=== PATIENT | male | born 1995 | race Caucasian/White ===

== ENCOUNTER 2021-01-22 13:36 | Outpatient (CLI) | payer OTHER, SELFPAY ==
--- NOTE | ~2021-01-22 | XR_ITS ---
XR_CERV2-3V_CR DATE: 01/22/2021 14:08 INDICATION: Left cervical radiculopathy TECHNIQUE: AP, open-mouth, lateral views COMPARISON: None FINDINGS: There is reversal of cervical curvature. There is dextroscoliosis of the cervical spine. C1 and C2 are normally aligned and the odontoid process is intact. No fracture or dislocation or lock ed facet. No prevertebral soft tissue swelling. Cervical interspaces are well preserved. IMPRESSION: Reversal of cervical curvature and dextroscoliosis Reviewed, dictated and finalized at Location [facility]. Reviewed, dictated and finalized at location A.
--- NOTE | ~2021-01-22 | XR_ITS ---
XR lumbar spine 2-3V DATE: 01/22/2021 14:09 INDICATION: Back pain TECHNIQUE: AP, lateral, coned lateral lumbosacral views COMPARISON: None FINDINGS: No fracture or bone destruction. The included lower thoracic and lumbar pedicles are intact . No spondylolisthesis. Lumbar and lumbosacral interspaces are well preserved. The sacroiliac joints appear normal. No spondylolisthesis. IMPRESSION: No significant abnormality Reviewed, dictated and finalized at location A. IMPRESSION: No significant abnormality
--- NOTE | ~2021-01-22 | XR_ITS ---
XR thoracic spine 3V DATE: 01/22/2021 14:08 INDICATION: Back pain TECHNIQUE: AP, lateral, swimmer views COMPARISON: None FINDINGS: No fracture or dislocation or bone destruction. The thoracic pedicles are intact. There is minimal thoracic scoliosis. No paraspinal soft tissue thickening. IMPRESSION: Minimal scoliosis Reviewed, dictated and finalized at location A. IMPRESSION: Minimal scoliosis
== END 2021-01-22 13:37 | disposition home or self-care (01) ==
PROVIDERS: PCP Physician Assistant; Visit Provider Physician Assistant
DX: M54.12 Radiculopathy, cervical region (principal); M54.9 Dorsalgia, unspecified
CPT/HCPCS: 72040; 72072; 72100

== ENCOUNTER 2021-02-01 16:55 | Emergency (ER) | payer OTHER, SELFPAY ==
[2021-02-01 17:38] VITALS: BP 134/88; PULSE 88; RESP 20; TEMP 36.4; O2SAT 97
--- NOTE | 2021-02-01 17:45 | ED.EYEPROB ---
HPI - Eye Problem General Chief complaint: Eye Problems Stated complaint: left eye vision loss Source: patient Limitations: no limitations History of Present Illness HPI Narrative: this is a 25 old gentleman that presents with some left eye pain with decreasing vision, has seen his primary care physician and was referred to chemical tester, currently patient has a history of migraines and ocular migraines currently the left eye there is no redness no drainage pupils are equal and reactive has good range of motion in all directions with some his left and right eye there is some pain with palpation in the left eye. chief complaint: eye pain and vision change Onset (ago): day(s) Onset description: gradual Duration: intermittent Location: left eye Eye Symptoms: pain and decreased vision Place: home Mechanism: none Severity: moderate Severity scale (1-10): 5 If Pain, Quality: aching Context: other ( Migraine) Associated symptoms: headache Treatments Prior to Arrival: NSAID Related Data Allergies Allergy/AdvReac Type Severity Reaction Status Date / Time codeine Allergy Mild Nausea and Verified 02/01/21 17:44 Vomiting Review of Systems Review of Systems: All systems reviewed & are unremarkable except as noted in HPI and below PMFSH Past Medical History Medical History Migraine Social History Social History Second hand tobacco smoke exposure: Yes Gender identity (if verbalized by the patient): Male Exam Const: General: no acute distress Orientation/consciousness: patient oriented x3 HENMT: Head: normal to inspection Eyes: Conjunctivae: conjunctivae normal Pupils: Equal, round and reactive pupils present EOM: EOMs intact bilaterally Direct Ophthalmoscopy: no photophobia Neck: Other: visual acuity decreased Chest: Chest palpation & inspection: normal inspection of the chest Resp: Effort & Inspection: normal respiratory effort Auscultation: clear to auscultation bilaterally Cardio: Rate: regular rate Rhythm: regular rhythm GI: Auscultation: normal bowel sounds : Testes: Testes normal Urinary Catheter: Urinary Catheter: patent and draining Back/Spine/Pelvis: Back: no CVA tenderness Skin: General skin exam: normal color Rashes: no rashes Neuro: General: patient oriented x3 Extrem: General: normal to inspection Course Course Emergency Course: reassessment of patient after receiving IM Toradol pain level has improved visual acuity still remains about the same, the patient does have an appointment with ophthalmology on February 13, also advised patient to follow with his primary care physician if symptoms persist or worsen. Vital Signs Vital signs: Vital Signs Temperature 36.4 C 02/01/21 17:38 Pulse Rate 88 02/01/21 17:38 Respiratory Rate 20 02/01/21 17:38 Blood Pressure 134/88 02/01/21 17:38 Pulse Oximetry 97 02/01/21 17:38 Temperature 36.4 C 02/01/21 17:38 Pulse Rate 88 02/01/21 17:38 Respiratory Rate 20 02/01/21 17:38 Blood Pressure 134/88 02/01/21 17:38 Pulse Oximetry 97 02/01/21 17:38 Critical Care Time Critical Care Time Critical Care Time: No Discharge Plan Discharge Clinical Impression: Ocular migraine Patient Disposition: Home, Self-Care Condition: Stable Instructions: Antibiotic Form, Ocular Migraine (ED) Additional Instructions: take medicine as prescribed and follow-up with primary care physician within the next 2 to 3 days further evaluation treatment. Prescriptions: New methylprednisolone [Medrol (Hay)] 4 mg tablets,dose pack See Rx Instructions .ROUTE .COMPLEX Qty: 21 RF: 0 Follow-up/Referrals: Dana,MD Igor [Primary Care Provider] - Time of Disposition: 17:51
[2021-02-01] MEDS: KETOROLAC (*BKC) 60 MG/2 ML VIAL IM (18:00)
[2021-02-01 18:22] VITALS: BP 136/82; PULSE 91; RESP 20; TEMP 36.3; O2SAT 96
== END 2021-02-01 18:23 | disposition home or self-care (01) ==
PROVIDERS: Emergency Provider Emergency Medicine; PCP Family Medicine
DX: G43.809 Other migraine, not intractable, without status migrainosus (principal)
CPT/HCPCS: 96372; 99283; J1885

== ENCOUNTER 2021-02-14 12:27 | Outpatient (CLI) | payer OTHER, SELFPAY ==
--- NOTE | ~2021-02-14 | MR_ITS ---
EXAMINATION: MR brain/brain stem wo con EXAM DATE: 02/14/2021 13:17 INDICATION: Left eye visual loss. Migraine headaches. TECHNIQUE: Magnetic resonance imaging (MRI) of the brain/brain stem obtained without contrast. Giovani al T1, axial diffusion, gradient echo (T2*), T1, T2, FLAIR sequences obtained. Correlation is made t o head CT 2008. FINDINGS: There are no areas of restricted diffusion to suggest acute infarction. There is no acute hemorrhage seen on the T2*, a hemosiderin sensitive sequence. No intraparenchymal brain mass. The ve ntricles are normal in size. There are no extra-axial collections. Flow voids are seen in the cereb ral arteries on the T2-weighted sequences consistent with their expected patency. The orbits are unr emarkable. Soft tissue is unremarkable. IMPRESSION: 1. Unremarkable brain MRI examination. Reviewed, dictated and finalized at location B.
== END 2021-02-14 12:28 | disposition home or self-care (01) ==
PROVIDERS: PCP Family Medicine; Visit Provider Physician Assistant
DX: R51.9 Headache, unspecified (principal)
CPT/HCPCS: 70551

== ENCOUNTER 2021-10-27 07:32 | Outpatient (RCR) | payer OTHER, SELFPAY ==
--- NOTE | 2021-10-27 08:16 | PTOPEVAL ---
Thank you for referring Db Butcher to [facility] [place] [facility] The patient is scheduled to be seen for therapy? __2__x/week for 12 visits. Please review, sign, date and return this plan of care PROMISE. I agree with and certify that the following plan of care is medically necessary. Referring Physician Date Admitting Provider: Attending Provider: RADHA BAINS Referring Provider: *PT Outpatient Evaluation Start: 10/27/21 07:33 Freq: Status: Active Protocol: Document 10/27/21 07:34 KECIA (Rec: 10/27/21 08:16 KECIA [email or web address]) Therapy Assessment Status Assessment Status Assessment Status Evaluation Outpatient Past Medical History Neurological History Hx Migraine Yes Hx Other Neurological Disorders Yes: CONCUSSION SYNDROME Evaluation Information Problem Diagnosis multiple sclerosis Onset 06/26/21 Subjective Information Pt. reports that he was Query Text:As Reported By Patient/ diagnosed on 06/26/21 with MS. Family Pt. reports that that his doctors feel as if his presentation is consistent with progressive MS. He reports that he is having vision issues that affect his balance. Pt. reports that he also gets vertigo and has difficulty with walking. He reports that he is noticing weakness greater in the left leg than the right. 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 Prior Level of Function Comments Additional Prior Level of Function Pt. 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 He reports that he would like to return to EMT work. Pain Assessment Timing of Pain Assessment Timing of Pain Assessment Pre-Treatment Pain Scale Pain Scale Used Numeric (1 - 10) Self Report Pain Assessment Back Reported Pain Level 3 Pain Description Aching Lowest Pain Intensity 3 Greatest Pain Intensity 6 Pain Score Pain Score 3: Self Report Interventions Used Interventions Used By Clinicians Activity or ADL's,Exercise Cervical and Lumbar ROM Lumbar ROM Lumbar Flexion Active Floor Query Kedar
--- NOTE | 2022-01-28 08:53 | PCPTNOTE ---
Pt. attended at total of 10 treatment sessions from 10/27/21 to 12/04/21. He has failed to return to the clinic and will be discharged from our care. Refer to last daily note for pt. discharge status.
== END 2021-12-04 23:59 | disposition home or self-care (01) ==
LOC: CHSPT 07:32
DX: G35 Multiple sclerosis (principal)
CPT/HCPCS: 97110; 97112; 97161; 97530

== ENCOUNTER 2022-02-03 09:57 | Outpatient (CLI) | payer OTHER, SELFPAY ==
--- NOTE | 2022-02-03 10:09 | ECG_ITS ---
Measurements Intervals [place] Rate: 69 P: 48 [place]: 153 QRS: 31 QRSD: 103 T: 31 QT: 350 QTc: 375 Interpretive Statements SINUS RHYTHM WITH MARKED SINUS ARRHYTHMIA NO PREVIOUS ECG AVAILABLE FOR COMPARISON Electronically Signed On 02-03-2022 12:41:42 CDT by Kenn Chappell M.D.
== END 2022-02-03 09:58 | disposition home or self-care (01) ==
LOC: CHSIMG 10:01
PROVIDERS: PCP Family Medicine; Visit Provider Physician Assistant
DX: R07.89 Other chest pain (principal)
CPT/HCPCS: 93005

== ENCOUNTER 2022-02-11 09:36 | Outpatient (CLI) | payer OTHER, SELFPAY ==
--- NOTE | 2022-02-17 11:37 | WPDHOLTEREM ---
Holter/Event Monitor Holter/Event Monitor Date of procedure: 02/19/22 Holter/Event Procedure: 48 Hr Holter Monitor Indications: Abnormal EKG Conclusion: 1. 48 hour holter monitor on 02/11/22. 2. Underlying rhythm is sinus rhythm with sinus arrhythmia. HR range 35-169 bpm; average HR 67 bpm. HR at 35 bpm at 03:32. HR at 169 bpm at 15:22. 3. There are 420 premature supraventricular complexes and 127 supraventricular couplets. No supraventricular tachycardia. 4. There are 5 premature ventricular complexes. No ventricular tachycardia. 5. No sinoatrial or atrioventricular blocks. No significant pauses greater than 2 seconds. 6. Patient reports symptoms of fluttering, shortness of breath, anxiety, heavy chest, tachy which demonstrate sinus rhythm, HR range 53-156 bpm.
== END 2022-02-11 09:37 | disposition home or self-care (01) ==
LOC: CHSCARD 09:38
PROVIDERS: PCP Family Medicine; Visit Provider Physician Assistant
DX: R94.31 Abnormal electrocardiogram [ECG] [EKG] (principal)
CPT/HCPCS: 93225; 93226

== ENCOUNTER 2022-02-17 11:21 | Outpatient (CLI) | payer OTHER, SELFPAY ==
--- NOTE | ~2022-02-17 | XR_ITS ---
EXAM: XR ankle LT min 3V DATE: 02/17/2022 11:44 HISTORY: sprain of left ankleX2 DAYS AGO,ROLLED ANKLE . COMPARISON: None available. FINDINGS: Normal mineralization. No fracture or dislocation. No lytic or blastic lesion. Mild degene rative change at the tibiotalar joint. Prominent os trigonum which can be a source of chronic posteri or pain in some patients. No erosion or periosteal change. Soft tissue swelling about the ankle. Ankl e joint effusion. IMPRESSION: No acute osseous finding in the left ankle. Reviewed, dictated and finalized at location K.
== END 2022-02-17 11:22 | disposition home or self-care (01) ==
LOC: CHSIMG 11:24
PROVIDERS: PCP Family Medicine; Visit Provider Physician Assistant
DX: S93.402A Sprain of unspecified ligament of left ankle, initial encounter (principal)
CPT/HCPCS: 73610

== ENCOUNTER 2022-03-06 13:30 | Outpatient (CLI) | payer OTHER, SELFPAY ==
--- NOTE | 2022-03-06 01:00 | ECHO_ITS ---
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 Summary 1. Complete two-dimensional, color flow and Doppler transthoracic echocardiogram is performed. 2. Left ventricular chamber dimension is normal. 3. Left ventricular systolic function is normal, estimated at 60-65%. 4. The left ventricular diastolic function is normal. 5. E/e' 4 is not elevated. 6. There is trace tricuspid valve regurgitation. 7. No pulmonary hypertension, estimated pulmonary arterial systolic pressure is 20 mmHg. 8. There is trace pulmonic regurgitation. Left Ventricle E/e' 4 is not elevated. Left ventricular chamber dimension is normal. Left ventricular systolic function is normal, estimated at 60-65%. The left ventricular diastolic function is normal. Right Ventricle Right ventricular chamber dimension is normal. Right ventricular systolic function is normal. Left Atria Left atrial chamber dimension is normal. Right Atria Right atrial chamber dimension is normal. Aortic Valve The aortic valve is trileaflet. There is no aortic valve stenosis. There is no aortic valve regurgitation. Pulmonic Valve There is trace pulmonic regurgitation. Mitral Valve There is no mitral valve stenosis. There is no mitral valve regurgitation. Tricuspid Valve There is trace tricuspid valve regurgitation. No pulmonary hypertension, estimated pulmonary arterial systolic pressure is 20 mmHg. Pericardium/Pleural There is no pericardial effusion. Inferior Vena Cava Normal inferior vena cava with >50% collapse upon inspiration consistent with normal right atrial pressure, 5 mmHg. Aorta The aortic root size at the sinus of Valsalva is normal. Left Ventricular Outflow Tract Name Value Normal LVOT 2D LVOT Diameter 2.0 cm LVOT Doppler LVOT Peak Velocity 97 cm/s LVOT Peak Gradient 4 mmHg LVOT Mean Gradient 2 mmHg LVOT VTI 16 cm LVOT VTI/AV VTI Ratio 0.7 LVOT Stroke Volume 50 ml Pulmonic Valve Name Value Normal RVOT Doppler RVOT Peak Gradient 1 mmHg PV Doppler
== END 2022-03-06 13:31 | disposition home or self-care (01) ==
LOC: CHSIMG 13:32
PROVIDERS: PCP Family Medicine; Visit Provider Physician Assistant
DX: R07.89 Other chest pain (principal)
CPT/HCPCS: 93306

== ENCOUNTER 2023-09-15 08:45 | Outpatient (CLI) | payer OTHER, SELFPAY ==
--- NOTE | ~2023-09-15 | XR_ITS ---
XR shoulder RT min 2V DATE: 09/15/2023 09:11 INDICATION: Right shoulder pain TECHNIQUE: 5 views COMPARISON: None FINDINGS: No fracture or dislocation, periosteal reaction or bone destruction or abnormal calcificati on. IMPRESSION: Negative Reviewed, dictated and finalized at location B. IMPRESSION: Negative
== END 2023-09-15 08:46 | disposition home or self-care (01) ==
PROVIDERS: PCP Family Medicine; Visit Provider Physician Assistant
DX: M25.511 Pain in right shoulder (principal)
CPT/HCPCS: 73030

== ENCOUNTER 2023-09-17 13:54 | Outpatient (RCR) | payer OTHER, SELFPAY ==
--- NOTE | 2023-09-17 16:41 | OTOPEVAL1 ---
Assessment and note entered by Bettye Paulino, OT Evaluation Information Assessment Status Evaluation Diagnosis Multiple Sclerosis Onset June 2021 Subjective Information Client reports weakness in left hand and right shoulder, coordination deficits in left hand, and cognitive skills Reported Pain Level Additional Pain Score Comments Rating pain at most in right shoulder 7/10; decreases with rest and medication 4/10 When at rest inferior angle of right scapula has pain with client rating it 8/10; Moving arm helps decrease pain in muscles surrounding the scapula During IE pain is rated 5/10 in scapula region and right shoulder Assessment OT Clinical Summary Client is a 28 year old male diagnosed with MS in June of 2021. Doctor has written an order to address client's LUE and RUE strength and coordination. Client recently fell in the kitchen due to drop foot and received an x-ray with no fractures shown in his right arm. Client still reports pain in right shoulder and near the inferior angle of right scapula. The client is seeing PT at a different facility for his shoulder pain. Client is planning to see MD for further evaluation of the pain and plans to report back to therapist next week. The client lives with his and three children in a single story home. Per client, he has a basement, but his no longer allows him to go down stairs since MS diagnosis. Client presented with minimally to moderately impaired left hand strength, minimally impaired left hand coordination, minimally to moderately impaired right shoulder strength, and minimally impaired executive functioning skills. Client would benefit from skilled OT services to address deficits and to increase independence with self care/home mgmt tasks. Plan of Care Interventions Therapeutic Exercise,Manual Therapy,Neuro Re- education,Therapeutic Activities,Hot Pack/Cold Pack,Cognitive Function,Electrical Stimulation, Sensory Integrative Techn,Self-Care/Home Management OT Services Indicated Yes Treatment Frequency and 3x/week for 10 visits Duration These treatments will address the objective and functional deficits as defin
--- NOTE | 2023-10-08 16:44 | OPREHPOC ---
Outpatient Therapy Plan of Care This is a Multidisciplinary Plan of Care that may contain components documented by all disciplines (PT, OT, and ST.) OT Problem 1 OT Problem #1 Knowledge Deficit OT Goal 1 Goal Client to verbalize and/or demonstrate understanding of UE strengthening HEP and coordination HEP to maintain progress made once discharged. Target Visit 10 Progress Met Comment GOAL MET; Provided with a coordination/dexterity HEP OT Problem 2 OT Problem #2 Impaired Coordination OT Goal 1 Goal Client to complete 9 Hole Peg Test using left hand in 20 seconds or less to increase client independence with fasteners. Target Visit 10 Comment PROGRESSING; CONTINUE OT Problem 3 OT Problem #3 Impaired Strength OT Goal 1 Goal Client's left jawbone puller strength to be greater or equal to 90 lbs. and his left hand lateral pinch strength to be greater than or equal to 16 lbs. to increase client independence with home management tasks and child rearing. Target Visit 10 Comment PROGRESSING; CONTINUE OT Goal 2 Goal Client's right shoulder and right elbow strength will increase from 4/5 to 5/5 and left shoulder and elbow from 4+/5 to 5/5 via MMT to increase independence with loading/unloading groceries. Target Visit 10 Progress Not Met Comment NO CHANGE; DISCONTINUE AT THIS TIME OT Goal 1 Goal Client to complete Trails B in 45 seconds or less without errors to increase EF skills, which are required to safety complete home management tasks. Target Visit 10 Comment SOMEWHAT WORSE; CONTINUE
--- NOTE | 2023-10-08 16:44 | OTOPREEVAL ---
Assessment and note entered by Bettye Paulino, OT Evaluation Information Assessment Status Re-evaluation Diagnosis Multiple Sclerosis Onset June 2021 Subjective Information Client reports no change in pain in right shoulder and scapular region and is to see MD regarding symptoms. However, client did state he has been able to tie both his shoes, which he has previously had significant difficulty with. Reported Pain Level Additional Pain Score Comments 3/10 pain near the inferior angle of the right scapula Assessment OT Clinical Summary Client pleasant throughout OT session and reported 3/10 pain around inferior angle of the scapula. Client stated the exercises have gotten him stronger, but there has been no change in pain at this time. He is scheduled to see his doctor October 17 to discuss pain in right scapula region and right shoulder in hopes for further recommendations/guidance. He reports good understanding of HEP and was provided with coordination/dexterity activities that can be performed at home. Client has demonstrated improvement in left hands lateral pinch strength increasing from 12 lbs. to 15 lbs.. He also completed the 9 Hole Peg Test is a less amount of time using left hand from 24 seconds to 23 seconds with client reporting he is now able to tie his shoes. Client's LUE strength has improved via MMT from 4+/5 to 5/5 with client reporting less difficulty holding his child. 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 Although minimal decline in results shown with Trails B Assessment from being completed in 55 seconds to 69 seconds, no functional decline observed or reported at this time. Client stated he has been given a new medication that has helped him have more energy to perform HEP and daily tasks. Client would benefit from continued skilled occupational therapy to address executive functioning skills including memory and time management, as well as strength, endurance, and coordination to improve client's safety and independence with self care and home management tasks. Plan of Care Interventions Therapeutic Exercise,Manual Therapy,Neuro Re- education,Therapeutic Activities,Hot Pack/Cold P
--- NOTE | 2023-10-27 16:29 | BUOTOPEVAL ---
Assessment and note entered by Padimni Angel OT Evaluation Information Assessment Status Progress Diagnosis Multiple Sclerosis Onset June 2021 Subjective Information The patient reports that his ability to cut vegetables quickly and safely is still impaired, he would like to be more efficient with that and continue to improve. He also reports that buttoning his daughters small buttons on clothing is very difficult. The patient reports he is seeing a specialist for his R shoulder and feels uncoordinated in L hand still. Reported Pain Level Pain Score 0: Self Report Pain Score 0: Self Report Pain Score 0: Self Report Pain Score 0: Self Report Pain Score 0: Self Report Pain Score 0: Self Report Pain Score 0: Self Report Pain Score 0: Self Report Additional Pain Score Comments 3/10 pain near the inferior angle of the right scapula Additional Pain Score Comments 4/10 pain in right scapula region Additional Pain Score Comments Client reports 3/10 in right scapular region at rest; no increase in pain reported during treatment exercises and activities Additional Pain Score Comments Rating pain at most in right shoulder 7/10; decreases with rest and medication 4/10 When at rest inferior angle of right scapula has pain with client rating it 8/10; Moving arm helps decrease pain in muscles surrounding the scapula During IE pain is rated 5/10 in scapula region and right shoulder Assessment OT Clinical Summary The patient demonstrates significant progress in executive functioning, 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 The patient reports that he continues to require assistance at home with fine motor coordination tasks such as small buttons and cutting food. The patient demonstrates continued weakness in supervisor concrete pipe plant strength and limited fine motor coordination tasks with impaired speed. The patient requires skilled OT to address deficits and increase efficien
--- NOTE | 2023-10-27 16:41 | BUOTOPEVAL ---
Assessment and note entered by Padmini Angel OT Evaluation Information Assessment Status Progress Diagnosis Multiple Sclerosis Onset June 2021 Subjective Information The patient reports that his ability to cut vegetables quickly and safely is still impaired, he would like to be more efficient with that and continue to improve. He also reports that buttoning his daughters small buttons on clothing is very difficult. The patient reports he is seeing a specialist for his R shoulder and feels uncoordinated in L hand still. Reported Pain Level Pain Score 0: Self Report Pain Score 0: Self Report Pain Score 0: Self Report Pain Score 0: Self Report Pain Score 0: Self Report Pain Score 0: Self Report Pain Score 0: Self Report Pain Score 0: Self Report Additional Pain Score Comments 3/10 pain near the inferior angle of the right scapula Additional Pain Score Comments 4/10 pain in right scapula region Additional Pain Score Comments Client reports 3/10 in right scapular region at rest; no increase in pain reported during treatment exercises and activities Additional Pain Score Comments Rating pain at most in right shoulder 7/10; decreases with rest and medication 4/10 When at rest inferior angle of right scapula has pain with client rating it 8/10; Moving arm helps decrease pain in muscles surrounding the scapula During IE pain is rated 5/10 in scapula region and right shoulder Assessment OT Clinical Summary The patient demonstrates significant progress in executive functioning, 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 The patient reports that he continues to require assistance at home with fine motor coordination tasks such as small buttons and cutting food. The patient demonstrates continued weakness in brake repairer strength and limited fine motor coordination tasks with impaired speed. The patient requires skilled OT to address deficits and increase efficien
== END 2023-10-26 20:00 | disposition home or self-care (01) ==
LOC: CHSOT 13:54
DX: G35 Multiple sclerosis (principal)
CPT/HCPCS: 97110; 97112; 97129; 97130; 97166; 97530